=== PATIENT | male | born 1965 ===

== ENCOUNTER 2024-10-11 09:41 | Outpatient (CLI) | payer OTHER | END 2024-10-11 09:42 | disposition home or self-care (01) | LOC: MRI 09:41 | PROVIDERS: ATTEND Nurse Practitioner Family | DX: M25.562 Pain in left knee (principal); S83.232A Complex tear of medial meniscus, current injury, left knee, initial encounter; M25.462 Effusion, left knee; M25.862 Other specified joint disorders, left knee ==